=== PATIENT | female | born 1995 | race Caucasian/White ===

== ENCOUNTER → 2019-08-23 | Outpatient (CLI) | payer OTHER | LOC: LAB 12:14 | DX: R05 Cough (principal); R19.7 Diarrhea, unspecified; Z20.828 Contact with and (suspected) exposure to other viral communicable diseases ==

== ENCOUNTER → 2020-01-17 | Outpatient (CLI) | payer OTHER ==
[2020-01-17 08:38] LABS: EOS # 0.1 (0.04-0.40); EOS % 2.3 % (1.0-5.0); HEMATOCRIT 39.9 % (37.0-47.0); LYMPH# 1.4 (1.50-4.00); MEAN CELL VOLUME 90 fl (78-100); MEAN CORPUSCULAR HEMOGLOBIN 29 pg (27-31); MEAN CORPUSCULAR HGB CONC 33 g/dL (33-37); MEAN PLATELET VOLUME 10.6 fl (7.4-10.4); MONO # 0.3 (0.20-0.80); NEU # 1.7 (1.40-6.50); PLATELET COUNT 253 K/mm3 (130-400); RED BLOOD COUNT 4.44 M/mm3 (4.10-5.30); RED CELL DISTRIBUTION WIDTH 12.3 % (11.5-14.5); WHITE BLOOD COUNT 3.5 K/mm3 (4.8-10.8)
[2020-01-17 08:45] LABS: ALBUMIN 4.1 g/dL (3.5-5.0); POTASSIUM 3.8 mmol/L (3.5-5.1)
[2020-01-17 08:46] LABS: CALCIUM 9.1 mg/dL (8.3-10.5)
[2020-01-17 08:47] LABS: TOTAL PROTEIN 6.8 g/dL (6.4-8.3)
[2020-01-17 08:49] LABS: TOTAL BILIRUBIN 0.3 mg/dL (0.2-1.2)
[2020-01-18 04:28] LABS: FOLLICLE STIMULATING HORMONE 4.8 mIU/mL (()); LUTENIZING HORMONE 4.1 mIU/mL (()); PROLACTIN AMS 11.7 ng/mL (())
== END ==
LOC: LAB 08:15
PROVIDERS: Physician Assistant
DX: R00.2 Palpitations (principal); R68.82 Decreased libido

== ENCOUNTER → 2021-01-26 | Outpatient (CLI) | payer OTHER | LOC: LAB 08:31 | DX: N89.8 Other specified noninflammatory disorders of vagina (principal) ==

== ENCOUNTER → 2021-09-07 | Outpatient (CLI) | payer OTHER | LOC: RAD 10:00 | DX: Q67.6 Pectus excavatum (principal) ==

== ENCOUNTER → 2021-09-30 | Outpatient (CLI) | payer OTHER ==
[2021-09-30 08:48] LABS: HEMATOCRIT 40.6 % (37.0-47.0); HEMOGLOBIN 13.3 g/dL (12.5-16.0); MEAN PLATELET VOLUME 10.3 fl (7.4-10.4); RED BLOOD COUNT 4.52 M/mm3 (4.10-5.30); RED CELL DISTRIBUTION WIDTH 12.1 % (11.5-14.5); WHITE BLOOD COUNT 3.4 K/mm3 (4.8-10.8)
[2021-09-30 08:56] LABS: ALBUMIN 4.5 g/dL (3.5-5.0); POTASSIUM 4.6 mmol/L (3.5-5.1)
[2021-09-30 08:57] LABS: CALCIUM 9.8 mg/dL (8.3-10.5)
[2021-09-30 08:58] LABS: TOTAL PROTEIN 7.3 g/dL (6.4-8.3)
[2021-09-30 09:00] LABS: TOTAL BILIRUBIN 0.5 mg/dL (0.2-1.2)
== END ==
LOC: LAB 08:34
PROVIDERS: Physician Assistant
DX: E78.5 Hyperlipidemia, unspecified (principal); R00.2 Palpitations; R10.9 Unspecified abdominal pain